=== PATIENT | female | born 1985 | race Caucasian/White ===

== ENCOUNTER 2016-10-16 17:50 | Emergency (ER) | payer MEDICAID ==
--- NOTE | 2016-10-16 18:22 | EDPHY ---
H & P Stated Complaint: R flank pain, hx pylo, pt reports elevated heart rate Time Seen by Provider: 10/16/16 18:19 HPI/ROS: CHIEF COMPLAINT: flank pain HISTORY OF PRESENT ILLNESS: The patient is a 30 year old female with history of recurrent kidney infection, presenting to the emergency department with right flank pain for the past 24 hours. For the past 6 months the patient has been intermittently on antibiotics for ongoing pyelonephritis. She is not certain of the names of the antibiotics that she has taken but thinks Keflex, Bactirm, and maybe Nitrofurantoin. Her treatment has been through other facilities. Four months ago she had negative ultrasound of kidneys and CT that was negative for stone. She has been off antibiotics for the past 5 weeks. Yesterday the patient developed a dull ache in her right flank with associated abdominal pain. Over the course of the day her pain worsened to a sharp sensation. She has associated nausea, chills, and dizziness. She had an elevated heart rate. The dizziness and elevatd heart rate have resolved. She took Tylenol 3 at 1pm today. She denies vomiting, diarrhea, or urinary complaints. She has not noted hematuria. 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 She has been referred to Urology by her doctor at [facility] in [place], but has not been able to arrange an appointment. REVIEW OF SYSTEMS: A ten point review of systems was performed and is negative with the exception of the items mentioned in the HPI. Source: Patient Exam Limitations: No limitations - Personal History LMP (Females 10-55): Unknown Current Tetanus/Diphtheria Vaccine: Unsure Current Tetanus Diphtheria and Acellular Pertussis (TDAP): Unsure - Medical/Surgical History Hx Asthma: No Hx Chronic Respiratory Disease: No Hx Diabetes: No Hx Cardiac Disease: No Hx Renal Disease: No Hx Cirrhosis: No Hx Alcoholism: No Hx HIV/AIDS: No Hx Splenectomy or Spleen Trauma: No Other PMH: hx pylo 5 weeks ago, pancreatitis - Social History Smoking Status: Current every day smoker Additional Social History: Currently unemployed. Here with boyfriend. She lives in [place]. - Physical Exam Exam: General Appearance: Alert. Vital signs reviewed. Blood pressure 84/51. Eyes: Pupils equal and round, no conjunctival injection, no discharge. Anicteric. ENT, Mouth: Mucous membranes are moist, no oropharyngeal erythema or edema. Neck: No lymphadenopathy, supple. Respiratory: Lungs are clear to auscultation; no wheezes, rales, or rhonchi. Cardiovascular: Regular rate and rhythm; no murmur, rub, or gallop. Gastrointestinal: Abdomen is soft, RUQ and RLQ tenderness, no guarding, no masses. Normal bowel sounds. Skin: Warm and dry, no rashes on exposed skin, normal color. Back: Nontender to palpation over the thoracolumbar spine. Bilateral mild CVAT. Extremities: No lower extremity edema, no calf tenderness or swelling. Neurological: Alert and oriented. Moving all four extremities easily and equally. Psychiatric: Normal affect. Constitutional: Initial Vital Signs Heart Rate 79 10/16/16 17:58 Respiratory Rate 16 10/16/16 17:58 Blood Pressure 84/51 L 10/16/16 17:58 O2 Sat (%) 98 10/16/16 17:58 O2 Delivery Mode Room Air Allergies/Adverse Reactions: No Known Allergies Allergy (Unverified 10/16/16 17:57) Home Medications: Medication Instructions Recorded oxyCODONE/APAP 5/325 [Percocet 1 - 2 tab PO Q4H PRN #10 tab 10/16/16 5/325 (RX)] Medical Decision Making - Diagnostics EKG Interpretation: The 12 lead EKG was interpreted by myself. See hard copy and/or "tracemaster" electronic copy for interpretation: Sinus rhythm, rate 80. Borderline right axis deviation. ED Course/Re-evaluation: IV was established. The patient received 1mg Dilaudid IV, 4mg Zofran IV, and fluids. UA is pending. 7:35 p.m.: UA shows blood without signs of infection (trace bacteria). I discussed CT option to look for stone. The patient had a CT 4 months ago that was negative for stone and would like to avoid additional CAT scanning. She tells me that her UA always shows blood. She was offered toradol but states that it has not helped her in the past. She is not . I looked up the patient in [facility]. No red flags. 8:50 p.m.: I reevaluated the patient after she received Oxycodone PO. She is feeling better and is comfortable with being discharged home. She understands that the diagnosis is unclear. I remain concerned about ureterolithiasis. We reviewed treatment of kidney stones. She will continue to try to arrange urology FU and will also FU with her PCP in [place]. EKG and d dimer were done because of her c/o dizziness and shortness of breath and concern for PE. Both are negative/normal. Wells score zero--likelihood of VTE low in this situation. I do not feel that further work-up for this is needed. She is not tachypneic or tachycardic and no longer feels SOB. She is mildly hypotensive, which she states is normal for her. Differential Diagnosis: I considered a ddx that includes but is not limited to pyelonephritis, UTI, ureterolithiasis, glomerulonephritis, malignancy, musculoskeletal pain, and drug seeking behavior. - Data Points Laboratory Results: Laboratory Results 10/16/16 18:20 10/16/16 18:20 Medications Given: Discontinued Medications Hydromorphone HCl (Dilaudid) 1 mg IVP EDNOW ONE Stop: 10/16/16 19:16 Last Admin: 10/16/16 19:20 Dose: 1 mg Sodium Chloride (Ns) 1,000 mls @ 0 mls/hr IV ONCE ONE PRN Reason: Wide Open Stop: 10/16/16 18:38 Last Admin: 10/16/16 18:37 Dose: 1,000 mls Sodium Chloride (Ns) 1,000 mls @ 0 mls/hr IV ONCE ONE PRN Reason: Wide Open Stop: 10/16/16 18:38 Last Admin: 10/16/16 18:40 Dose: 1,000 mls Ondansetron HCl (Zofran) 4 mg IVP EDNOW ONE Stop: 10/16/16 19:16 Last Admin: 10/16/16 19:20 Dose: 4 mg Oxycodone/Acetaminophen (Percocet 5/325) 1 tab PO EDNOW ONE Stop: 10/16/16 19:51 Last Admin: 10/16/16 19:58 Dose: 1 tab Oxycodone/Acetaminophen (Percocet 5/325mg Prepack#4) 1 btl TAKEHOME EDNOW ONE Stop: 10/16/16 21:02 Last Admin: 10/16/16 21:17 Dose: 1 btl Departure - Departure Disposition: Home, Routine, Self-Care Clinical Impression: Hematuria Condition: Good Instructions: Oxycodone/Acetaminophen (By mouth), Hematuria (ED) Additional Instructions: Call the referred urologist to schedule a followup appointment. Referrals: Liz Lopez MD [Medical Doctor] - As per Instructions (Urologist) Ray Gonzalez MD [Medical Doctor] - As per Instructions (Urologist) Prescriptions: oxyCODONE/APAP 5/325 [Percocet 5/325 (RX)] 1 - 2 tab PO Q4H PRN #10 tab PRN Reason: Pain, Severe Report Scribed for: Kizzy Williamson Report Scribed by: Melina Araya Date of Report: 10/16/16 Time of Report: 18:34 Physician Review and Approval Statement: 10/16/16 18:22 Portions of this note were transcribed by the medical claims assistant. I, Dr. Kizzy Williamson, personally performed the history, physical exam, and medical decision- making; and confirmed the accuracy of the information in the transcribed note.
[2016-10-16 18:35] LABS: % IMMATURE GRANULYOCYTES 0.2 % (0.0-1.1); ABSOLUTE IMMATURE GRANULOCYTES 0.02 10^3/uL (0.00-0.10); ADD DIFF? NO; ADD MORPH? NO; ADD SCAN? NO; ATYPICAL LYMPHOCYTE FLAG 30 (0-99); FRAGMENT RBC FLAG 0 (0-99); HEMATOCRIT 40.6 % (38.0-47.0); HEMOGLOBIN 13.9 g/dL (12.6-16.3); LEFT SHIFT FLG 0 (0-99); LIPEMIA HEMOLYSIS FLAG 90 (0-99); MEAN CELL HEMOGLOBIN 33.3 pg (27.9-34.1); MEAN CELL HEMOGLOBIN CONCENTR. 34.2 g/dL (32.4-36.7); MEAN CELL VOLUME 97.1 fL (81.5-99.8); MEAN PLATELET VOLUME 10.6 fL (8.7-11.7); PLATELET CLUMPS FLAG 0 (0-99); PLATELET COUNT 202 10^3/uL (150-400); RED BLOOD CELL COUNT 4.18 10^6/uL (4.18-5.33); RED CELL DISTRIBUTION WIDTH 12.9 % (11.5-15.2)
--- NOTE | 2016-10-16 18:35 | CPEKG ---
Heart Rate: 80 RR Interval: 750 P-R Interval: 152 QRSD Interval: 94 QT Interval: 356 QTC Interval: 411 P Rush: 57 QRS Rush: 93 T Wave Rush: 55 EKG Severity - OTHERWISE NORMAL ECG - EKG Impression: SINUS RHYTHM EKG Impression: BORDERLINE RIGHT AXIS DEVIATION Electronically Signed By: Jose Snyder 17-Oct-2016 10:03:50
[2016-10-16] MEDS ORDERED: NS 1,000 ML IV ONE ×2 (18:37)
[2016-10-16 18:58] LABS: COLOR YELLOW; LEUKOCYTE ESTERASE,URINE NEGATIVE (NEGATIVE); NITRITE,URINE NEGATIVE (NEGATIVE)
[2016-10-16 19:05] LABS: ANION GAP 10 mEq/L (8-16); CALCIUM 8.9 mg/dL (8.5-10.4); CARBON DIOXIDE 23 mEq/l (22-31); CHLORIDE 105 mEq/L (97-110); CREATININE 0.7 mg/dL (0.6-1.0); GLOMERULAR FILTRATION RATE > 60; GLUCOSE 94 mg/dL (70-100); POTASSIUM 4.1 mEq/L (3.5-5.2); SODIUM 138 mEq/L (134-144)
[2016-10-16 19:08] LABS: BACTERIA TRACE /hpf (NONE SEEN); MUCUS 4+ /lpf (NONE-1+); RBC,URINE 15-25 /hpf (0-3)
[2016-10-16] MEDS ORDERED: ONDANSETRON 4 MG/2 ML VIAL IVP ONE (19:15)
[2016-10-16] MEDS ORDERED: HYDROmorphONE/DILAUDID 1 MG/ML SYR IVP ONE (19:15)
[2016-10-16] MEDS ORDERED: OXYCODONE/APAP 5/325 TAB PO ONE (19:50)
[2016-10-16] MEDS ORDERED: OXYCODONE/APAP 5/325MG PREPACK#4 BTL TAKEHOME ONE (21:01)
[2016-10-16 21:26] VITALS: BP 98/56; PULSE 86; RESP 15; O2SAT 92
== END 2016-10-16 21:26 | disposition home or self-care (01) ==
DX: R31.9 Hematuria, unspecified (principal); F17.200 Nicotine dependence, unspecified, uncomplicated
CPT/HCPCS: 96374; J1170; J2405